=== PATIENT | male | born 1955 | race Caucasian/White ===

== ENCOUNTER 2020-03-08 13:39 | Emergency (ER) | payer MEDICARE, OTHER ==
[~2020-03-08] VITALS: Ht 177.8 cm; Wt 70.3 kg
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
--- NOTE | 2020-03-08 14:03 | NUR ---
AT BEDSIDE FOR EVAL.
--- NOTE | 2020-03-08 14:12 | NUR ---
EMMANU[facility]AG[facility] AT BEDSIDE FOR BLOOD DRAW.
[2020-03-08 14:24] LABS: BASOPHILS # (AUTO) 0.1 /CMM (0.0-0.2); BASOPHILS % (AUTO) 1.2 % (0.0-2.0); EOSINOPHILS % (AUTO) 1.4 % (0.0-6.0); HEMATOCRIT 40 % (39-51); HEMOGLOBIN 13.1 g/dL (13.5-17.5); LYMPHOCYTES # (AUTO) 1.3 /CMM (0.8-4.8); MEAN CORPUSCULAR HGB CONC 33 g/dl (31.0-36.0); MEAN CORPUSCULAR VOLUME 85 fL (80-96); MONOCYTES # (AUTO) 0.7 /CMM (0.1-1.30); MONOCYTES % (AUTO) 8.9 % (2.0-12.0); NEUTROPHILS # (AUTO) 5.5 /CMM (1.8-8.9); NEUTROPHILS % (AUTO) 71.5 % (43.0-81.0); PLATELET COUNT (AUTO) 258 /CMM (150-450); RED BLOOD CELL COUNT(AUTO) 4.66 MIL/uL (4.5-6.0); WHITE BLOOD COUNT (AUTO) 7.7 K/uL (4.3-11.0)
--- NOTE | 2020-03-08 14:28 | NUR ---
PT IS BACK FROM THE CT SCAN.
[2020-03-08 14:31] LABS: CALCIUM, SERUM 9.1 mg/dL (8.5-10.1); CARBON DIOXIDE 28 mmol/L (21-32); CHLORIDE 103 mmol/L (98-107); CREATININE 1.1 mg/dL (0.6-1.3); GLUCOSE 99 mg/dL (74-106); POTASSIUM 3.8 mmol/L (3.5-5.1); SODIUM SERUM 140 mmol/L (136-145); UREA NITROGEN, BLOOD 11 mg/dL (7-18)
[2020-03-08] MEDS ORDERED: IOHEXOL-300 100 ML VIAL IV ONE (14:36)
[2020-03-08] MEDS ORDERED: IV NS 0.9% 250 ML IV ONE (14:36)
[2020-03-08] MEDS ORDERED: CT SWABBABLE VALVE TRANS SET 1 EA INFUS.SET MC ONE (14:36)
--- NOTE | 2020-03-08 15:25 | NUR ---
[employer] AT BEDSIDE.
--- NOTE | 2020-03-08 16:31 | NUR ---
COVID SWAB OBTAINED AND SENT TO LAB.
[2020-03-08] MEDS ORDERED: HYDROCODONE/APAP 10/325MG 1 EA TABLET ONE (17:28)
[2020-03-08] MEDS ORDERED: HYDROCODONE/APAP 10/325MG 1 EA TABLET PO ONE (17:30)
[2020-03-08 17:54] VITALS: BP 127/76
--- NOTE | 2020-03-08 17:54 | NUR ---
IV removed. Catheter intact and site benign. Pressure and 4x4 applied to site. No bleeding noted. Patient discharged to home in stable condition. Written and verbal after care instructions given. Patient verbalizes understanding of instruction.
== END 2020-03-08 17:55 | disposition home or self-care (01) ==
LOC: ER 13:40
DX: S16.1XXA Strain of muscle, fascia and tendon at neck level, initial encounter (principal); R91.8 Other nonspecific abnormal finding of lung field; I44.4 Left anterior fascicular block; Z79.01 Long term (current) use of anticoagulants; V49.49XA Driver injured in collision with other motor vehicles in traffic accident, initial encounter; Y93.89 Activity, other specified; Y92.488 Other paved roadways as the place of occurrence of the external cause; Y99.8 Other external cause status; Z20.828 Contact with and (suspected) exposure to other viral communicable diseases; Z86.718 Personal history of other venous thrombosis and embolism; M50.31 Other cervical disc degeneration, high cervical region; J43.9 Emphysema, unspecified
CPT/HCPCS: 36415; 70450; 71260; 72125; 80048; 84484; 85025; 85610; 85730; 87635; 93005 ×2; 99285; J7050; L0172; Q9967